=== PATIENT | female | born 1995 | race Caucasian/White ===

== ENCOUNTER 2017-04-05 03:40 | Emergency (ER) | payer SELFPAY ==
--- NOTE | 2017-04-05 04:04 | PDOC ---
History of Present Illness - General History Source: Patient <Kong Norman - Last Filed: 04/05/17 04:04> - General History Source: Patient Exam Limitations: No Limitations - History of Present Illness Initial Comments: 04/05/17 04:19 The patient is a 21 year old female with no significant past medical history who presents who the ED, via EMS, with complaints of abdominal pain since yesterday. The patient reports a gradual onset of intermittent diffuse abdominal pain yesterday morning. Patient states her pain is a 10/10 at worst but upon arrival to the ED notes her pain is a 0/10. She states her last real meal was on saturday and she feels like she has not digested her food throughout the week. Patient reports in the past she had an infection of the intestine. Patient notes her menstrual period started 2 days ago. Denies fever or chills. Denies nausea, vomiting, or diarrhea. Denies dysuria or change in urinary output. Denies any other symptoms. <Maribell Morton - Last Filed: 04/05/17 04:19> <Irma Mccall - Last Filed: 04/05/17 10:30> - General Stated Complaint: ABDOMINAL PAIN Time Seen by Provider: 04/05/17 03:59 Past History <Kong Norman - Last Filed: 04/05/17 04:04> <Maribell Morton - Last Filed: 04/05/17 04:19> <Irma Mccall - Last Filed: 04/05/17 10:30> - Past Medical History Allergies/Adverse Reactions: Allergies Allergy/AdvReac Type Severity Reaction Status Date / Time No Known Allergies Allergy Verified 04/05/17 04:08 Home Medications: Ambulatory Orders Acetaminophen [Tylenol] 650 mg PO Q4H PRN #100 tablet 04/05/17 Ciprofloxacin [Cipro -] 500 mg PO BID #14 tablet 04/05/17 Review of Systems - Review of Systems Able to Perform ROS?: Yes Comments:: 04/05/17 04:19 CONSTITUTIONAL: No reported: Fever, Chills, Diaphoresis, Generalized Weakness, Malaise, Loss of Appetite HEENT: No reported: Rhinorrhea, Nasal Congestion, Throat Pain, Throat Swelling, Difficulty Swallowing, Mouth Swelling, Ear Pain, Eye Pain, Visual Changes CARDIOVASCULAR: No reported: Chest Pain, Syncope, Palpitations, Irregular Heart Rate, Lightheadedness, Peripheral Edema RESPIRATORY: No reported: Cough, Shortness of Breath, SOB with Exertion, Orthopnea, Wheezing , Stridor, Hemoptysis GASTROINTESTINAL: + abdominal pain, decreased PO intake No reported: Abdominal Distension, Nausea, Vomiting, Diarrhea, Constipation, Melena, Hematochezia GENITOURINARY: No reported: Dysuria, Frequency, Urgency, Hesitancy, Flank Pain, Genital Pain MUSCULOSKELETAL: No reported: Myalgia, Arthralgia, Joint Swelling, Back pain, Neck Pain SKIN: No reported: Rash, Itching, Pallor HEMEATOLOGIC/IMMUNOLOGIC: No reported: Easy Bleeding, Easy Bruising, Lymphadenopathy, Frequent infections ENDOCRINE: No reported: Unexplained Weight Gain, Unexplained Weight Loss, Heat Intolerance , Cold Intolerance NEUROLOGIC: No reported: Headache, Focal Weakness, Paresthesias, Vertigo, Lightheadedness, Unsteady Gait, Seizure, Mental Status Changes, Incontinence PSYCHIATRIC: No reported: Anxiety, Depression All Other Systems: Reviewed and Negative <Maribell Morton - Last Filed: 04/05/17 04:19> *Physical Exam - Vital Signs Last Vital Signs Temp Pulse Resp BP Pulse Ox 98.4 F 84 18 98/76 99 04/05/17 04:01 04/05/17 04:01 04/05/17 04:01 04/05/17 04:01 04/05/17 04:01 - Physical Exam Comments: 04/05/17 04:19 GENERAL: The patient is awake, alert, and fully oriented, Nontoxic - in no acute distress. HEAD: Normocephalic, atraumatic. EYES: extraocular movements intact, sclera anicteric, conjunctiva clear. ENT: Normal voice, Moist mucous membranes. NECK: Normal range of motion, supple LUNGS: Breath sounds equal, clear to auscultation bilaterally. No wheezes, no rhonchi, no rales. HEART: Regular rate and rhythm, without murmur, rub or gallop. ABDOMEN: Soft, nontender, normoactive bowel sounds. No guarding, no rebound.No CVA tenderness EXTREMITIES: Normal range of motion, no edema. No clubbing or cyanosis. No cords, erythema, or tenderness. NEUROLOGICAL: No facial assymetry, Normal speech, PSYCH: Normal mood, normal affect. SKIN: Warm, Dry, normal turgor, <SeleneAnddonas - Last Filed: 04/05/17 04:19> - Vital Signs Last Vital Signs Temp Pulse Resp BP Pulse Ox 98.4 F 84 18 98/76 99 04/05/17 04:01 04/05/17 04:01 04/05/17 04:01 04/05/17 04:01 04/05/17 04:01 <Irma Mccall - Last Filed: 04/05/17 10:30> ED Treatment Course - LABORATORY CBC & Chemistry Diagram: 04/05/17 04:34 04/05/17 04:34 - ADDITIONAL ORDERS Additional order review: Laboratory Results 04/05/17 04/05/17 04/05/17 06:00 04:34 04:34 PT with INR INR Sodium 138 Potassium 3.7 Chloride 104 Carbon Dioxide 27 Anion Gap 7 L BUN 8 Creatinine 0.6 Creat Clearance w eGFR > 60 Random Glucose 107 H Calcium 8.7 Magnesium 1.9 Total Bilirubin 0.2 AST 13 L ALT 17 Alkaline Phosphatase 88 Total Protein 7.8 Albumin 4.1 Lipase 116 Serum , Qual Negative Urine Color Laurie Urine Appearance Slcloudy Urine pH 6.0 Ur Specific [place] 1.006 Urine Protein 1+ H Urine Glucose (UA) Negative Urine Ketones Negative Urine Blood 3+ H Urine Nitrite Negative Urine Bilirubin Negative Urine Urobilinogen Negative Ur Leukocyte Esterase Trace H Ur Epithelial Cells Few Urine Bacteria Rare Urine Mucus Rare 04/05/17 04:34 PT with INR 12.80 H INR 1.13 Sodium Potassium Chloride Carbon Dioxide Anion Gap BUN Creatinine Creat Clearance w eGFR Random Glucose Calcium Magnesium Total Bilirubin AST ALT Alkaline Phosphatase Total Protein Albumin Lipase Serum , Qual Urine Color Urine Appearance Urine pH Ur Specific [place] Urine Protein Urine Glucose (UA) Urine Ketones Urine Blood Urine Nitrite Urine Bilirubin Urine Urobilinogen Ur Leukocyte Esterase Ur Epithelial Cells Urine Bacteria Urine Mucus 04/05/17 04:34 RBC 4.76 MCV 87.6 MCHC 33.1 RDW 12.9 MPV 8.4 Neutrophils % 80.1 Lymphocytes % 9.4 Monocytes % 9.4 Eosinophils % 0.7 Basophils % 0.4 - Medications Given in the ED: ED Medications Discontinued Medications Generic Name Dose Route Start Last Admin Trade Name Freq PRN Reason Stop Dose Admin Sodium Chloride 1,000 mls @ 1,000 mls/hr 04/05/17 04:05 04/05/17 04:36 Normal Saline - IV 04/05/17 05:04 1,000 mls/hr ASDIR STA Administration Ketorolac Tromethamine 30 mg 04/05/17 06:01 04/05/17 06:23 Toradol Injection - IVPUSH 04/05/17 06:02 30 mg ONCE ONE Administration <Irma Mccall - Last Filed: 04/05/17 10:30> *DC/Admit/Observation/Transfer <Kong Norman - Last Filed: 04/05/17 04:04> - Attestations Scribe Attestion: 04/05/17 04:20 Documentation prepared by Maribell Morton, acting as medical records manager for Kong Norman MD <Maribell Morton - Last Filed: 04/05/17 04:19> <Irma Mccall - Last Filed: 04/05/17 10:30> Diagnosis at time of Disposition: Colitis - Discharge Dispostion Disposition: HOME - Prescriptions Prescriptions: Acetaminophen [Tylenol] 650 mg PO Q4H PRN #100 tablet PRN Reason: Pain Ciprofloxacin [Cipro -] 500 mg PO BID #14 tablet - Referrals Referrals: Dami Das MD [Staff Physician] - 3 days - Post Discharge Activity Forms/Work/School Notes: Back to Work
[2017-04-05] MEDS ORDERED: SODIUM CHLORIDE 1,000 ML IV STA (04:05)
[2017-04-05 04:18] VITALS: TEMP 98.4; BMI 24.5
[2017-04-05 04:50] LABS: BASOPHIL 0.4 % (0-2.0); EOSINOPHIL 0.7 % (0-4.5); MCHC 33.1 g/dl (32.0-36.0); MEAN CELL VOLUME 87.6 fl (80-96); MEAN PLT VOLUME 8.4 fl (7.5-11.1); NEUTROPHILS 80.1 % (42.8-82.8); PLATELET COUNT 262 K/MM3 (134-434); RDW 12.9 % (11.6-15.6); WHITE BLOOD COUNT 9.3 K/mm3 (4.0-10.0)
[2017-04-05 05:03] LABS: INR 1.13 (0.82-1.09); PROTHROMBIN TIME (PATIENT) 12.8 SEC (9.98-11.88)
[2017-04-05 05:14] LABS: ALBUMIN 4.1 g/dl (3.4-5.0); ANION GAP 7 (8-16); BILIRUBIN,TOTAL 0.2 mg/dL (0.2-1.0); CALCIUM 8.7 mg/dL (8.5-10.1); CO2 27 mmol/L (21-32); CREATININE 0.6 mg/dL (0.55-1.02); GLUCOSE,RANDOM 107 mg/dL (74-106); MAGNESIUM 1.9 mg/dL (1.8-2.4); SGOT/AST 13 U/L (15-37); SGPT/ALT 17 U/L (12-78); TOT PROT 7.8 g/dl (6.4-8.2)
[2017-04-05 05:15] LABS: ALK PHOS 88 U/L (45-117)
[2017-04-05] MEDS ORDERED: KETOROLAC TROMETHAMINE 30 MG/1 ML VIAL IVPUSH ONE (06:01)
[2017-04-05 06:12] LABS: URINE APPEARANCE SLCLOUDY; URINE BILIRUBIN NEGATIVE (NEGATIVE); URINE BLOOD 3+ (NEGATIVE); URINE COLOR AMBER; URINE GLUCOSE (UA) NEGATIVE (NEGATIVE); URINE KETONE NEGATIVE (NEGATIVE); URINE NITRITE NEGATIVE (NEGATIVE); URINE UROBILINOGEN NEGATIVE mg/dL (0.2-1.0)
[2017-04-05 06:15] LABS: URINE PROTEIN 1+ (NEGATIVE)
[2017-04-05] MEDS ORDERED: KETOROLAC TROMETHAMINE 30 MG/1 ML VIAL ONE (06:19)
[2017-04-05 06:22] LABS: URINE BACTERIA RARE /hpf (NONE SEEN); URINE MUCUS RARE; URINE RBC 96 /hpf (0-3); URINE WBC 99 /hpf (3-5)
[2017-04-05 09:48] LABS: URINE LEUK ESTERASE TRACE (NEGATIVE)
--- NOTE | 2017-04-05 10:12 | PDOC ---
*Physical Exam - Vital Signs Last Vital Signs Temp Pulse Resp BP Pulse Ox 98.4 F 84 18 98/76 99 04/05/17 04:01 04/05/17 04:01 04/05/17 04:01 04/05/17 04:01 04/05/17 04:01 ED Treatment Course - LABORATORY CBC & Chemistry Diagram: 04/05/17 04:34 04/05/17 04:34 - ADDITIONAL ORDERS Additional order review: Laboratory Results 04/05/17 04/05/17 04/05/17 06:00 04:34 04:34 PT with INR INR Sodium 138 Potassium 3.7 Chloride 104 Carbon Dioxide 27 Anion Gap 7 L BUN 8 Creatinine 0.6 Creat Clearance w eGFR > 60 Random Glucose 107 H Calcium 8.7 Magnesium 1.9 Total Bilirubin 0.2 AST 13 L ALT 17 Alkaline Phosphatase 88 Total Protein 7.8 Albumin 4.1 Lipase 116 Serum , Qual Negative Urine Color Laurie Urine Appearance Slcloudy Urine pH 6.0 Ur Specific [place] 1.006 Urine Protein 1+ H Urine Glucose (UA) Negative Urine Ketones Negative Urine Blood 3+ H Urine Nitrite Negative Urine Bilirubin Negative Urine Urobilinogen Negative Ur Leukocyte Esterase Trace H Ur Epithelial Cells Few Urine Bacteria Rare Urine Mucus Rare 04/05/17 04:34 PT with INR 12.80 H INR 1.13 Sodium Potassium Chloride Carbon Dioxide Anion Gap BUN Creatinine Creat Clearance w eGFR Random Glucose Calcium Magnesium Total Bilirubin AST ALT Alkaline Phosphatase Total Protein Albumin Lipase Serum , Qual Urine Color Urine Appearance Urine pH Ur Specific [place] Urine Protein Urine Glucose (UA) Urine Ketones Urine Blood Urine Nitrite Urine Bilirubin Urine Urobilinogen Ur Leukocyte Esterase Ur Epithelial Cells Urine Bacteria Urine Mucus 04/05/17 04:34 RBC 4.76 MCV 87.6 MCHC 33.1 RDW 12.9 MPV 8.4 Neutrophils % 80.1 Lymphocytes % 9.4 Monocytes % 9.4 Eosinophils % 0.7 Basophils % 0.4 - Medications Given in the ED: ED Medications Discontinued Medications Generic Name Dose Route Start Last Admin Trade Name Freq PRN Reason Stop Dose Admin Sodium Chloride 1,000 mls @ 1,000 mls/hr 04/05/17 04:05 04/05/17 04:36 Normal Saline - IV 04/05/17 05:04 1,000 mls/hr ASDIR STA Administration Ketorolac Tromethamine 30 mg 04/05/17 06:01 04/05/17 06:23 Toradol Injection - IVPUSH 04/05/17 06:02 30 mg ONCE ONE Administration Medical Decision Making - Medical Decision Making 04/05/17 10:07 21-year-old female is here for evaluation of abdominal pain with poor appetite and intermittent cramps. She has a history of intermittent abdominal pains in the past. She also has a past history of blood in the stool. She has never been worked up for these findings previously. She now presents with intermittent crampy abdominal pain. On examination she has some right lower quadrant and suprapubic tenderness on deep palpation. There is no guarding and no rebound tenderness. Laboratory studies reviewed: Laboratory Results - last 24 hr 04/05/17 04/05/17 04/05/17 04:34 04:34 04:34 WBC 9.3 RBC 4.76 Hgb 13.8 Hct 41.6 MCV 87.6 MCH 29.0 MCHC 33.1 RDW 12.9 Plt Count 262 MPV 8.4 Neutrophils % 80.1 Lymphocytes % 9.4 Monocytes % 9.4 Eosinophils % 0.7 Basophils % 0.4 PT with INR 12.80 H INR 1.13 Sodium Potassium Chloride Carbon Dioxide Anion Gap BUN Creatinine Creat Clearance w eGFR Random Glucose Calcium Magnesium Total Bilirubin AST ALT Alkaline Phosphatase Total Protein Albumin Lipase Serum , Qual Negative Urine Color Urine Appearance Urine pH Ur Specific [place] Urine Protein Urine Glucose (UA) Urine Ketones Urine Blood Urine Nitrite Urine Bilirubin Urine Urobilinogen Ur Leukocyte Esterase Ur Epithelial Cells Urine Bacteria Urine Mucus 04/05/17 04/05/17 04:34 06:00 WBC RBC Hgb Hct MCV MCH MCHC RDW Plt Count MPV Neutrophils % Lymphocytes % Monocytes % Eosinophils % Basophils % PT with INR INR Sodium 138 Potassium 3.7 Chloride 104 Carbon Dioxide 27 Anion Gap 7 L BUN 8 Creatinine 0.6 Creat Clearance w eGFR > 60 Random Glucose 107 H Calcium 8.7 Magnesium 1.9 Total Bilirubin 0.2 AST 13 L ALT 17 Alkaline Phosphatase 88 Total Protein 7.8 Albumin 4.1 Lipase 116 Serum , Qual Urine Color Laurie Urine Appearance Slcloudy Urine pH 6.0 Ur Specific [place] 1.006 Urine Protein 1+ H Urine Glucose (UA) Negative Urine Ketones Negative Urine Blood 3+ H Urine Nitrite Negative Urine Bilirubin Negative Urine Urobilinogen Negative Ur Leukocyte Esterase Trace H Ur Epithelial Cells Few Urine Bacteria Rare Urine Mucus Rare White blood cell count is normal. Electrolytes and liver function tests are unremarkable. Urinalysis has blood, but the patient is currently menstruating. CT scan of the abdomen and pelvis was performed with findings of thickening in areas of the colon. Patient symptoms and CT findings are suggestive of colitis, possibly ulcerative colitis. She will be treated with Cipro for the possibility of infectious cause. She will be given Tylenol for pain. She will be referred to Dr. Mick Das for GI follow-up and colonoscopy. *DC/Admit/Observation/Transfer Diagnosis at time of Disposition: Colitis - Discharge Dispostion Disposition: HOME Condition at time of disposition: Improved Admit: No - Prescriptions Prescriptions: Acetaminophen [Tylenol] 650 mg PO Q4H PRN #100 tablet PRN Reason: Pain Ciprofloxacin [Cipro -] 500 mg PO BID #14 tablet - Referrals Referrals: Dami Das MD [Staff Physician] - 3 days - Patient Instructions - Post Discharge Activity Forms/Work/School Notes: Back to Work
[2017-04-05] MEDS ORDERED: ACETAMINOPHEN 325 MG TABLET (FP) PO ONE (10:26)
[2017-04-05] MEDS ORDERED: CIPROFLOXACIN 500 MG TABLET (RESTRICTED TO ID) PO ONE (10:26)
[2017-04-05] MEDS ORDERED: ACETAMINOPHEN 325 MG TABLET (FP) ONE (10:32)
[2017-04-05 11:23] VITALS: BP 112/89; PULSE 78
== END 2017-04-05 11:23 | disposition home or self-care (01) ==
LOC: JER 03:40
PROC: 3E0333Z Introduction of Anti-inflammatory into Peripheral Vein, Percutaneous Approach (ICD-10-PCS; principal; 2017-04-05)
PROC: 3E0337Z Introduction of Electrolytic and Water Balance Substance into Peripheral Vein, Percutaneous Approach (ICD-10-PCS; 2017-04-05)
DX: K52.9 Noninfective gastroenteritis and colitis, unspecified (principal)
CPT/HCPCS: 36415; 74177-TC; 80053; 81003; 81015; 83690; 83735; 84703; 85025; 85610; 99284-25; Q9967

== ENCOUNTER 2017-04-18 09:28 | Day surgery (SDC) | payer OTHER ==
[2017-04-18 10:25] VITALS: BMI 23.6
--- NOTE | 2017-04-18 11:28 | PROC ---
Endoscopy Procedure Endoscopy procedure completed. Please see scanned procedure report. Normal colonoscopy to the TI. random biopsies taken
[2017-04-18 11:46] VITALS: TEMP 97.5
[2017-04-18 12:55] VITALS: BP 86/31; PULSE 54
--- NOTE | 2017-04-19 12:02 | PATH ---
Surgical Pathology Report Patient Name: MAYRA KURTZ [facility]. Rec. #: [id number] /Age/Gender: 1995 (Age: 21) / F Account: [id number] Location: [facility]-ENDOSCOPY Taken: 04/18/2017 Received: 04/18/2017 Reported: 04/19/2017 Physicians: Dami Das M.D. Specimen(s) Received A: BX TERMINAL ILEUM B: BX ASCENDING COLON C: BX TRANSVERSE COLON D: BX DESCENDING COLON E: BX SIGMOID F: BX RECTUM Clinical History Preoperative diagnosis: Blood in the stool Postoperative diagnosis: Hematochezia Final Diagnosis A. TERMINAL ILEUM, BIOPSY: SMALL BOWEL/ILEAL MUCOSA WITHOUT SIGNIFICANT PATHOLOGIC FINDINGS. B. ASCENDING COLON, BIOPSY: COLONIC MUCOSA WITHOUT SIGNIFICANT PATHOLOGIC FINDINGS. C. TRANSVERSE COLON, BIOPSY: COLONIC MUCOSA WITHOUT SIGNIFICANT PATHOLOGIC FINDINGS. D. DESCENDING COLON, BIOPSY: COLONIC MUCOSA WITH SMALL LYMPHOID AGGREGATE. E. SIGMOID COLON, BIOPSY: COLONIC MUCOSA WITH SMALL LYMPHOID AGGREGATE. F. RECTUM, BIOPSY: COLONIC MUCOSA WITH PROMINENT LYMPHOID AGGREGATES. Electronically Signed Ivet Manning M.D. Gross Description A. Received in formalin, labeled "biopsy terminal ileum" are 2 galvan, irregular portions of soft tissue averaging 0.3 cm. in greatest dimension. The specimens are submitted in toto in one cassette. B. Received in formalin, labeled "biopsy ascending colon" are 2 galvan, irregular portions of soft tissue averaging 0.3 cm. in greatest dimension. The specimens are submitted in toto in one cassette. C. Received in formalin, labeled "biopsy transverse colon" are 2 galvan, irregular portions of soft tissue measuring 0.2 and 0.3 cm. in greatest dimension. The specimens are submitted in toto in one cassette. D. Received in formalin, labeled "biopsy descending colon" are 2 galvan, irregular portions of soft tissue measuring 0.2 and 1.4 cm. in greatest dimension. The specimens are submitted in toto in one cassette. E. Received in formalin, labeled "biopsy sigmoid" are 2 galvan, irregular portions of soft tissue averaging 0.2 cm. in greatest dimension. The specimens are submitted in toto in one cassette. F. Received in formalin, labeled "biopsy rectum" are 2 galvan, irregular portions of soft tissue measuring 0.2 and 0.3 cm. in greatest dimension. The specimens are submitted in toto in one cassette. 04/18/201704/18/2017
== END 2017-04-18 13:02 | disposition home or self-care (01) ==
LOC: JASU-ENDO 09:28
PROVIDERS: ATTEND Internal Medicine Gastroenterology
PROC: 0DBE8ZX Excision of Large Intestine, Via Natural or Artificial Opening Endoscopic, Diagnostic (ICD-10-PCS; 2017-04-18)
PROC: 0DBB8ZX Excision of Ileum, Via Natural or Artificial Opening Endoscopic, Diagnostic (ICD-10-PCS; principal; 2017-04-18 10:00)
DX: K92.1 Melena (principal); R10.30 Lower abdominal pain, unspecified
CPT/HCPCS: 84703; 88305-TC

== ENCOUNTER 2017-06-11 15:59 | Emergency (ER) | payer OTHER ==
--- NOTE | 2017-06-11 16:11 | PDOC ---
Rapid Medical Evaluation Time Seen by Provider: 06/11/17 16:06 Medical Evaluation: Allergies Allergy/AdvReac Type Severity Reaction Status Date / Time No Known Allergies Allergy Verified 04/05/17 04:08 06/11/17 16:07 Pt with c/o: fever, right abd pain, sore throat, urinary freq, bladder pressure pt on brief exam: vss, ruq tenderness, mild cvs tenderness Pt ordered for: rapid strep, ua ucx, upreg, cbc, comp, lipase Pt to proceed to the ED: Discharge Disposition - Diagnosis Abdominal pain - Referrals - Patient Instructions - Post Discharge Activity
[2017-06-11 16:13] VITALS: BP 101/64; PULSE 78; TEMP 97.6; BMI 24.5
[2017-06-11 16:50] LABS: BASO % 0.9 % (0-2.0); EOS % 2.7 % (0-4.5); HEMOGLOBIN 13.2 GM/dL (10.7-15.3); LYMPH % 44.9 % (8-40); MCH 29.1 pg (25.7-33.7); MEAN CELL VOLUME 88.1 fl (80-96); MEAN PLT VOLUME 8.5 fl (7.5-11.1); MONO % 11.8 % (3.8-10.2); NEUT % 39.7 % (42.8-82.8); PLATELET COUNT 259 K/MM3 (134-434); RBC 4.54 M/mm3 (3.60-5.2); RDW 13.4 % (11.6-15.6); WHITE BLOOD COUNT 5.1 K/mm3 (4.0-10.0)
[2017-06-11 16:54] LABS: HCG,QUALITATIVE URINE NEGATIVE
[2017-06-11 16:55] LABS: URINE APPEARANCE CLEAR; URINE BILIRUBIN NEGATIVE (NEGATIVE); URINE BLOOD NEGATIVE (NEGATIVE); URINE COLOR COLORLESS; URINE GLUCOSE (UA) NEGATIVE (NEGATIVE); URINE KETONE NEGATIVE (NEGATIVE); URINE LEUK ESTERASE NEGATIVE (NEGATIVE); URINE NITRITE NEGATIVE (NEGATIVE); URINE PROTEIN NEGATIVE (NEGATIVE); URINE UROBILINOGEN NEGATIVE mg/dL (0.2-1.0)
[2017-06-11 17:45] LABS: ALBUMIN 4.2 g/dl (3.4-5.0); ANION GAP 7 (8-16); BILIRUBIN,TOTAL 0.4 mg/dL (0.2-1.0); BLOOD UREA NITROGEN 9 mg/dL (7-18); CALCIUM 9.2 mg/dL (8.5-10.1); CHLORIDE 103 mmol/L (98-107); CO2 28 mmol/L (21-32); CREATININE 0.6 mg/dL (0.55-1.02); GLUCOSE,RANDOM 75 mg/dL (74-106); LIPASE 138 U/L (73-393); POTASSIUM 3.8 mmol/L (3.5-5.1); SGOT/AST 17 U/L (15-37); SGPT/ALT 18 U/L (12-78); SODIUM 138 mmol/L (136-145)
[2017-06-11 17:47] LABS: ALK PHOS 89 U/L (45-117)
--- NOTE | 2017-06-11 19:37 | PDOC ---
History of Present Illness <Lisa Ma - Last Filed: 06/11/17 19:49> - General History Source: Patient, Old Records Exam Limitations: No Limitations - History of Present Illness Initial Comments: 06/11/17 19:57 The patient is a 21 year old female, with no significant past medical history, who presents to the emergency department with abdominal pain, nausea, sore throat and a low grade fever. She describes her abdominal pain as intermittent for the last month, ranging from mild to moderate, without radiation or modifying factors. She was in the ED 03/2017 for abdominal pain, had a CT scan abdomen / pelvis which showed an inflammed transverse colon. She was referred to Dr. Das (GI), who performed a colonoscopy but the patient never followed UP. She notes that her sore throat ranges from mild to moderate. She states that she is able to swallow with minimal difficulty. The patient denies chest pain, shortness of breath, headache and dizziness. Denies chills, vomit, diarrhea and constipation. Allergies: None Past surgical history: None reported Social history: No alcohol, tobacco or drug use reported <Kong Taveras - Last Filed: 06/11/17 19:58> - General Chief Complaint: Sore Throat Stated Complaint: SORE THROAT Time Seen by Provider: 06/11/17 16:06 Past History - Past Medical History Anemia: No Asthma: No Cancer: No Cardiac Disorders: No CVA: No COPD: No CHF: No DVT: No Dementia: No Diabetes: No Dialysis: No GI Disorders: Yes ("Intestine Infection") Disorders: No (OVARIAN CYSTS) HTN: No Hypercholesterolemia: No Kidney Stones: No Liver Disease: No Psychiatric Problems: No Seizures: No Thyroid Disease: No Lung CA: No - Surgical History Abdominal Surgery: No Appendectomy: No Cardiac Surgery: No Cholecystectomy: No Gastric Stapling: No GI Surgery: No Lung Surgery: No Neurologic Surgery: No - Immunization History Immunization Up to Date: Yes - Suicide/Smoking/Psychosocial Hx Smoking History: Never smoked Have you smoked in the past 12 months: No If you are a former smoker, when did you quit?: 2014 Information on smoking cessation initiated: No Hx Alcohol Use: No Drug/Substance Use Hx: No Substance Use Type: None <Lisa Ma Estelle - Last Filed: 06/11/17 19:49> <Kong Taveras - Last Filed: 06/11/17 19:58> - Past Medical History Allergies/Adverse Reactions: Allergies Allergy/AdvReac Type Severity Reaction Status Date / Time No Known Allergies Allergy Verified 04/05/17 04:08 Home Medications: Ambulatory Orders NK [No Known Home Medication] 04/18/17 Review of Systems - Review of Systems Able to Perform ROS?: Yes Comments:: 06/11/17 19:57 GENERAL/CONSTITUTIONAL: (+) Fever. No chills. No weakness. HEAD, EYES, EARS, NOSE AND THROAT: (+) Sore throat. No change in vision. No ear pain or discharge. CARDIOVASCULAR: No chest pain or shortness of breath RESPIRATORY: No cough, wheezing, or hemoptysis. GASTROINTESTINAL: (+) Nausea, abdominal pain. No vomiting, diarrhea or constipation. GENITOURINARY: No dysuria, frequency, or change in urination. MUSCULOSKELETAL: No joint or muscle swelling or pain. No neck or back pain. SKIN: No rash NEUROLOGIC: No headache, vertigo, loss of consciousness, or change in strength/ sensation. ENDOCRINE: No increased thirst. No abnormal weight change HEMATOLOGIC/LYMPHATIC: No anemia, easy bleeding, or history of blood clots. ALLERGIC/IMMUNOLOGIC: No hives or skin allergy. <Kong Taveras - Last Filed: 06/11/17 19:58> *Physical Exam - Vital Signs Last Vital Signs Temp Pulse Resp BP Pulse Ox 97.6 F 78 16 101/64 100 06/11/17 16:08 06/11/17 16:08 06/11/17 16:08 06/11/17 16:08 06/11/17 16:08 <Lisa Ma - Last Filed: 06/11/17 19:49> - Vital Signs Last Vital Signs Temp Pulse Resp BP Pulse Ox 97.6 F 78 16 101/64 100 06/11/17 16:08 06/11/17 16:08 06/11/17 16:08 06/11/17 16:08 06/11/17 16:08 - Physical Exam Comments: 06/11/17 19:58 GENERAL: Awake, alert, and fully oriented, in no acute distress HEAD: No signs of trauma, normocephalic, atraumatic EYES: PERRLA, EOMI, sclera anicteric, conjunctiva clear ENT: (+) Erythematous oropharynx. Auricles normal inspection, hearing grossly normal, nares patent. Moist mucosa NECK: Normal ROM, supple, no lymphadenopathy, JVD, or masses LUNGS: No distress, speaks full sentences, clear to auscultation bilaterally HEART: Regular rate and rhythm, normal S1 and S2, no murmurs, rubs or gallops, peripheral pulses normal and equal bilaterally. ABDOMEN: Soft, nontender, normoactive bowel sounds. No guarding, no rebound. No masses EXTREMITIES : Normal inspection, Normal range of motion, no edema. No clubbing or cyanosis. NEUROLOGICAL: Cranial nerves II through XII grossly intact. Normal speech, normal gait, no focal sensorimotor deficits SKIN: Warm, Dry, normal turgor, no rashes or lesions noted. <Kong Taveras - Last Filed: 06/11/17 19:58> ED Treatment Course - LABORATORY CBC & Chemistry Diagram: 06/11/17 16:22 06/11/17 16:22 - ADDITIONAL ORDERS Additional order review: Laboratory Results 06/11/17 06/11/17 16:22 16:15 Sodium 138 Potassium 3.8 Chloride 103 Carbon Dioxide 28 Anion Gap 7 L BUN 9 Creatinine 0.6 Creat Clearance w eGFR > 60 Random Glucose 75 Calcium 9.2 Total Bilirubin 0.4 D AST 17 ALT 18 Alkaline Phosphatase 89 Total Protein 8.0 Albumin 4.2 Lipase 138 Urine Color Colorless Urine Appearance Clear Urine pH 7.0 Ur Specific [place] 1.004 Urine Protein Negative Urine Glucose (UA) Negative Urine Ketones Negative Urine Blood Negative Urine Nitrite Negative Urine Bilirubin Negative Urine Urobilinogen Negative Ur Leukocyte Esterase Negative Urine HCG, Qual Negative 06/11/17 16:15 Group A Strep Rapid Antigen - Final Throat 06/11/17 16:22 RBC 4.54 MCV 88.1 MCHC 33.0 RDW 13.4 MPV 8.5 Neutrophils % 39.7 L D Lymphocytes % 44.9 H D Monocytes % 11.8 H Eosinophils % 2.7 D Basophils % 0.9 - RADIOLOGY Radiology Studies Ordered: Category Date Time Status PELVIC / BLADDER US [US] Stat Ultrasound 06/11/17 18:07 Completed <Lisa Ma - Last Filed: 06/11/17 19:49> - LABORATORY CBC & Chemistry Diagram: 06/11/17 16:22 06/11/17 16:22 - ADDITIONAL ORDERS Additional order review: Laboratory Results 06/11/17 06/11/17 16:22 16:15 Sodium 138 Potassium 3.8 Chloride 103 Carbon Dioxide 28 Anion Gap 7 L BUN 9 Creatinine 0.6 Creat Clearance w eGFR > 60 Random Glucose 75 Calcium 9.2 Total Bilirubin 0.4 D AST 17 ALT 18 Alkaline Phosphatase 89 Total Protein 8.0 Albumin 4.2 Lipase 138 Urine Color Colorless Urine Appearance Clear Urine pH 7.0 Ur Specific [place] 1.004 Urine Protein Negative Urine Glucose (UA) Negative Urine Ketones Negative Urine Blood Negative Urine Nitrite Negative Urine Bilirubin Negative Urine Urobilinogen Negative Ur Leukocyte Esterase Negative Urine HCG, Qual Negative 06/11/17 16:15 Group A Strep Rapid Antigen - Final Throat 06/11/17 16:22 RBC 4.54 MCV 88.1 MCHC 33.0 RDW 13.4 MPV 8.5 Neutrophils % 39.7 L D Lymphocytes % 44.9 H D Monocytes % 11.8 H Eosinophils % 2.7 D Basophils % 0.9 <Kong Taveras - Last Filed: 06/11/17 19:58> *DC/Admit/Observation/Transfer <Lisa Ma - Last Filed: 06/11/17 19:49> - Attestations Scribe Attestion: 06/11/17 19:58 Documentation prepared by Kong Taveras, acting as bio medical technician for Lisa Ma MD <Kong Taveras - Last Filed: 06/11/17 19:58> Diagnosis at time of Disposition: Sore throat Abdominal pain Qualifiers: Abdominal location: right lower quadrant Qualified Code(s): R10.31 - Right lower quadrant pain - Discharge Dispostion Disposition: HOME Condition at time of disposition: Stable - Patient Instructions Printed Discharge Instructions: DI for Ovarian Cyst Additional Instructions: please return if you have worsening abdominal pain or vomiting - Post Discharge Activity Forms/Work/School Notes: Back to Work
[2017-06-11] MEDS ORDERED: IBUPROFEN 600 MG TABLET (FP) PO ONE ×2 (19:54→19:58)
== END 2017-06-11 20:00 | disposition home or self-care (01) ==
LOC: JER 15:59 → JERFT 15:59 → JER 20:00
DX: J02.9 Acute pharyngitis, unspecified (principal); R10.31 Right lower quadrant pain
CPT/HCPCS: 36415; 76856-TC; 80053; 81003; 83690; 84703; 85025; 87070; 87086; 87430; 99282-25

== ENCOUNTER 2017-06-12 16:31 | Emergency (ER) | payer OTHER ==
--- NOTE | 2017-06-12 16:42 | PDOC ---
Rapid Medical Evaluation Chief Complaint: Back Pain Time Seen by Provider: 06/12/17 16:39 Medical Evaluation: Allergies Allergy/AdvReac Type Severity Reaction Status Date / Time No Known Allergies Allergy Verified 06/12/17 16:38 06/12/17 16:41 I have performed a brief in-person evaluation of this patient. The patient presents with a chief complaint of: Fever and ? dysuria. Seen in ED yesterday for viral syndrome including abd pain. Labs including ua and strep neg. Ucx pending. Pelvic US w/ simple R cyst, no torsion Pertinent physical exam findings: Mildly tachy w/ unremarkable exam otherwise I have ordered the following:nothing The patient will proceed to the ED for further evaluation.
[2017-06-12 16:47] VITALS: BP 109/80; PULSE 108; TEMP 99.1; BMI 22.6
[2017-06-12] MEDS ORDERED: IBUPROFEN 400 MG TABLET (FP) PO ONE (16:48)
--- NOTE | 2017-06-12 18:35 | PDOC ---
History of Present Illness - General Chief Complaint: Back Pain Stated Complaint: PAIN Time Seen by Provider: 06/12/17 16:39 History Source: Patient, Old Records Exam Limitations: Language Barrier (Markafoni #[id number]) - History of Present Illness Initial Comments: 06/12/17 18:33 This a 21-year-old woman with past medical history of ovarian cysts who returns to the emergency Department after evaluation yesterday with complaints of fever , headaches, sore throat, left-sided abdominal pain, nasal congestion, nausea for 2 days. Patient states she felt better after receiving "an antibiotic" in the emergency department but was unsure why a prescription had not been sent to her pharmacy. Patient was told she received ibuprofen in the emergency department and asked for a prescription for ibuprofen. It was explained to the patient that ibuprofen is an nsrz-web-urukiey medication and a prescription is not needed. She states the symptoms returned after approximately 10 hours from receiving the ibuprofen. Past History - Past Medical History Allergies/Adverse Reactions: Allergies Allergy/AdvReac Type Severity Reaction Status Date / Time No Known Allergies Allergy Verified 06/12/17 16:38 Home Medications: Ambulatory Orders NK [No Known Home Medication] 04/18/17 Anemia: No Asthma: No Cancer: No Cardiac Disorders: No CVA: No COPD: No CHF: No DVT: No Dementia: No Diabetes: No Dialysis: No GI Disorders: Yes ("Intestine Infection") Disorders: No (OVARIAN CYSTS) HTN: No Hypercholesterolemia: No Kidney Stones: No Liver Disease: No Psychiatric Problems: No Seizures: No Thyroid Disease: No Lung CA: No - Surgical History Abdominal Surgery: No Appendectomy: No Cardiac Surgery: No Cholecystectomy: No Gastric Stapling: No GI Surgery: No Lung Surgery: No Neurologic Surgery: No - Immunization History Immunization Up to Date: Yes - Suicide/Smoking/Psychosocial Hx Smoking History: Never smoked Have you smoked in the past 12 months: No If you are a former smoker, when did you quit?: 2014 Information on smoking cessation initiated: No Hx Alcohol Use: No Drug/Substance Use Hx: No Substance Use Type: None Review of Systems - Review of Systems Able to Perform ROS?: Yes Is the patient limited Yi proficient: Yes Constitutional: Yes: See HPI HEENTM: Yes: See HPI Respiratory: No: Symptoms reported Cardiac (ROS): No: Symptoms Reported ABD/GI: Yes: See HPI : No: Symptoms Reported Musculoskeletal: No: Symptoms Reported Integumentary: No: Symptoms Reported Neurological: No: Symptoms reported Endocrine: No: Symptoms Reported Hematologic/Lymphatic: No: Symptoms Reported *Physical Exam - Vital Signs Last Vital Signs Temp Pulse Resp BP Pulse Ox 99.1 F 108 H 16 109/80 100 06/12/17 16:38 06/12/17 16:38 06/12/17 16:38 06/12/17 16:38 06/12/17 16:38 - Physical Exam General Appearance: Yes: Appropriately Dressed. No: Apparent Distress HEENT: positive: Pharyngeal Erythema, Nasal Congestion. negative: Tonsillar Exudate, Tonsillar Erythema, Rhinorrhea, Sinus Tenderness Neck: positive: Trachea midline, Supple Respiratory/Chest: positive: Lungs Clear, Normal Breath Sounds. negative: Respiratory Distress, Accessory Muscle Use Cardiovascular: positive: Regular Rhythm, Regular Rate, S1, S2. negative: Edema , Murmur Gastrointestinal/Abdominal: positive: Normal Bowel Sounds, Soft. negative: Tender Musculoskeletal: positive: Normal Inspection. negative: CVA Tenderness Extremity: positive: Normal Inspection Integumentary: positive: Normal Color, Dry, Warm Neurologic: positive: chef kitchen manager II-XII NML intact, Fully Oriented, Alert, Normal Mood/ Affect, Normal Response, Motor Strength /5 ED Treatment Course - Medications Given in the ED: ED Medications Discontinued Medications Generic Name Dose Route Start Last Admin Trade Name Freq PRN Reason Stop Dose Admin Ibuprofen 800 mg 06/12/17 16:48 06/12/17 16:49 Motrin - PO 06/12/17 16:49 800 mg ONCE ONE Administration Medical Decision Making - Medical Decision Making 06/12/17 18:39 A/P: 21-year-old woman with return visit for fever, headaches, sore throat lower abdominal pain, nasal congestion and nausea. Patient exam is unchanged since yesterday. Patient was expecting a prescription of Motrin sent to pharmacy yesterday and was not. I will discharge the patient with understanding that she needs to purchase Motrin and taken to help relieve the pain. *DC/Admit/Observation/Transfer Diagnosis at time of Disposition: Sore throat - Discharge Dispostion Disposition: HOME Condition at time of disposition: Stable Admit: No - Referrals - Patient Instructions Printed Discharge Instructions: DI for Viral Upper Respiratory Infection -- Adult Additional Instructions: Rest, drink lots of fluids: Teas, water, soups, Pedialyte Saltwater gargles Steamy showers/seem to face break up mucus Avoid contact with others until fevers and cough resolved Lots of handwashing and good hygiene Continue [id number] medications for symptomatic relief Tylenol or Motrin for fever and pain Tylenol and Motrin are joxp-vyo-dwcaccy medications which require you to purchase them Followup with private physician in one to 2 days as needed Return to emergency department for worsened symptoms, fevers, dehydration Descjessica santiago muchos lquidos: ts, agua, sopas, Pedialyte Grgaras de agua salada Las duchas con agua parecen romper la mucosidad Evite el contacto con otras personas hasta que se resuelvan las fiebres y la tos Mucho lavado de judy y buena higiene Continuar tomando medicamentos sin receta para aliviar los sntomas Tylenol o Motrin para la fiebre y el dolor Tylenol y Motrin son medicamentos de venta markel que requieren que usted los compre Seguimiento con un mdico privado en kurt o dos rollins segn sea necesario Regrese al departamento de emergencias por sntomas empeorados, fiebre, deshidratacin Print Language: [place] - Post Discharge Activity
== END 2017-06-12 18:45 | disposition home or self-care (01) ==
LOC: JERFT 16:31
DX: J02.9 Acute pharyngitis, unspecified (principal); Z87.891 Personal history of nicotine dependence
CPT/HCPCS: 99281-25

== ENCOUNTER 2017-09-27 13:54 | Emergency (ER) | payer OTHER ==
[2017-09-27 14:24] VITALS: BMI 25.4
[2017-09-27 15:18] LABS: HCG,QUALITATIVE URINE NEGATIVE
[2017-09-27 15:29] LABS: URINE APPEARANCE TURBID; URINE BILIRUBIN NEGATIVE (<2.0 mg/dL); URINE COLOR YELLOW; URINE GLUCOSE (UA) NEGATIVE (NEGATIVE); URINE KETONE NEGATIVE (NEGATIVE); URINE LEUK ESTERASE NEGATIVE (NEGATIVE); URINE NITRITE NEGATIVE (NEGATIVE); URINE PROTEIN NEGATIVE (NEGATIVE); URINE UROBILINOGEN NEGATIVE mg/dL (0.2-1.0)
--- NOTE | 2017-09-27 16:54 | PDOC ---
History of Present Illness - General History Source: Patient Exam Limitations: No Limitations - History of Present Illness Initial Comments: 09/27/17 19:51 The patient is a 22 year old female with a significant past medical history of polycystic ovarian syndrome and intestine infection who presents to the emergency department for bilateral lower abdominal pain. The patient reports a 2 day history of moderate bilateral lower abdominal pain. She describes the pain as constant, pressure like, and non-radiating in nature. She reports multiple episodes of hematochezia. She describes the stool as normal but streaked with blood. She denies any changes in diet. The patient reports she was seen in March for similar symptoms, and was diagnosed with colonic narrowing. Of note, patient reports seeing Dr. Das for colonoscopy which had a normal result. Patient's LMP was 09/08. The patient denies chest pain, shortness of breath, headache, and dizziness. Denies fevers, chills, nausea, vomiting, diarrhea, and constipation. Denies dysuria, frequency, urgency, and hematuria. Allergies: NKA Past surgical history: Patient denies surgery Social history: No reported cigarette, alcohol, or drug use. PCP: Dr. Das ([phone]) <Isaiah Fonseca - Last Filed: 09/27/17 19:51> <Darron Sarmiento - Last Filed: 09/27/17 20:34> - General Chief Complaint: Pain Stated Complaint: ABD PAIN Time Seen by Provider: 09/27/17 15:27 Past History <Isaiah Fonseca - Last Filed: 09/27/17 19:51> - Past Medical History Anemia: No Asthma: No Cancer: No Cardiac Disorders: No CVA: No COPD: No CHF: No DVT: No Dementia: No Diabetes: No Dialysis: No GI Disorders: Yes ("Intestine Infection") Disorders: No (OVARIAN CYSTS) HTN: No Hypercholesterolemia: No Kidney Stones: No Liver Disease: No Psychiatric Problems: No Seizures: No Thyroid Disease: No Lung CA: No - Surgical History Abdominal Surgery: No Appendectomy: No Cardiac Surgery: No Cholecystectomy: No Gastric Stapling: No GI Surgery: No Lung Surgery: No Neurologic Surgery: No - Immunization History Immunization Up to Date: Yes - Suicide/Smoking/Psychosocial Hx Smoking History: Never smoked Have you smoked in the past 12 months: No If you are a former smoker, when did you quit?: 2014 Information on smoking cessation initiated: No Hx Alcohol Use: No Drug/Substance Use Hx: No Substance Use Type: None <Darron Sarmiento - Last Filed: 09/27/17 20:34> - Past Medical History Allergies/Adverse Reactions: Allergies Allergy/AdvReac Type Severity Reaction Status Date / Time No Known Allergies Allergy Verified 09/27/17 14:20 Home Medications: Ambulatory Orders NK [No Known Home Medication] 04/18/17 Review of Systems - Review of Systems Able to Perform ROS?: Yes Comments:: CONSTITUTIONAL: No fever, no chills, no fatigue EYES: No visual changes ENT: No ear pain, no sore throat CARDIOVASCULAR: No chest pain, no palpitations RESPIRATORY: No cough, no SOB GI: (+)Bilateral lower abdominal pain. (+)Hematochezia. No nausea, no vomiting, no constipation, no diarrhea GENITOURINARY: No dysuria, no frequency, no hematuria MUSKULOSKELETAL: No backpain, no joint pain, no myalgias SKIN: No rash NEURO: No headache <Isaiah Fonseca - Last Filed: 09/27/17 19:51> *Physical Exam - Vital Signs Last Vital Signs Temp Pulse Resp BP Pulse Ox 98.4 F 81 20 134/52 100 09/27/17 14:10 09/27/17 14:10 09/27/17 14:10 09/27/17 14:10 09/27/17 14:10 - Physical Exam Comments: CONSTITUTIONAL: Well-appearing; well-nourished; in no apparent distress HEAD: Normocephalic; atraumatic EYES: PERRL; EOM intact ENMT: External appears normal; normal oropharynx NECK: Supple; non-tender; no cervical lymphadenopathy CARD: Normal S1, S2; no murmurs, rubs, or gallops RESP: Normal chest excursion with respiration; breath sounds clear and equal bilaterally; no wheezes, rhonchi, or rales ABD: (+)Mild bilateral lower quadrant tenderness, right greater than left. Soft , non-distended. EXT: Normal ROM in all four extremities; non-tender to palpation; distal pulses intact SKIN: Warm, dry, no rash NEURO: No focal neurological deficiencies. <Isaiah Fonseca - Last Filed: 09/27/17 19:51> - Vital Signs Last Vital Signs Temp Pulse Resp BP Pulse Ox 98.4 F 81 20 134/52 100 09/27/17 14:10 09/27/17 14:10 09/27/17 14:10 09/27/17 14:10 09/27/17 14:10 <Darron Sarmiento - Last Filed: 09/27/17 20:34> ED Treatment Course - LABORATORY CBC & Chemistry Diagram: 09/27/17 17:00 09/27/17 17:00 - ADDITIONAL ORDERS Additional order review: Laboratory Results 09/27/17 09/27/17 17:00 14:50 Sodium 139 Potassium 4.2 Chloride 105 Carbon Dioxide 26 Anion Gap 8 BUN 11 Creatinine 0.8 Creat Clearance w eGFR > 60 Random Glucose 82 Calcium 9.3 Total Bilirubin 0.3 D AST 18 ALT 20 Alkaline Phosphatase 97 Total Protein 7.8 Albumin 4.1 Urine Color Yellow Urine Appearance Turbid Urine pH 8.0 Ur Specific [place] 1.019 Urine Protein Negative Urine Glucose (UA) Negative Urine Ketones Negative Urine Blood Negative Urine Nitrite Negative Urine Bilirubin Negative Urine Urobilinogen Negative Ur Leukocyte Esterase Negative Urine HCG, Qual Negative 09/27/17 17:00 RBC 4.52 MCV 88.3 MCHC 33.4 RDW 13.3 MPV 8.2 Neutrophils % 70.6 D Lymphocytes % 19.7 D Monocytes % 8.0 Eosinophils % 1.2 Basophils % 0.5 <Isaiah Fonseca - Last Filed: 09/27/17 19:51> - LABORATORY CBC & Chemistry Diagram: 09/27/17 17:00 09/27/17 17:00 - ADDITIONAL ORDERS Additional order review: Laboratory Results 09/27/17 14:50 Urine Color Yellow Urine Appearance Turbid Urine pH 8.0 Ur Specific [place] 1.019 Urine Protein Negative Urine Glucose (UA) Negative Urine Ketones Negative Urine Blood Negative Urine Nitrite Negative Urine Bilirubin Negative Urine Urobilinogen Negative Ur Leukocyte Esterase Negative Urine HCG, Qual Negative <Darron Sarmiento - Last Filed: 09/27/17 20:34> Medical Decision Making - Medical Decision Making 09/27/17 19:45 Patient is a well-appearing 22-year-old female who presents to the ER with atraumatic lower abdominal pain and blood streaked stools. In the ER, patient is afebrile, nontoxic appearing. Abdominal exam reveals mild tenderness to deep palpation to the bilateral lower quadrants (right greater than left); differential diagnoses includes IBD versus appendicitis versus colitis. I suspect the rectal bleeding and pain on defecation is related to the anal fissure. Will obtain CT with by mouth and IV contrast to further investigate abdominal pain. Will reassess. 09/27/17 20:32 Patient reassessed. Patient is resting comfortably, pain free, tolerates by mouth. CBC reveals minimal leukocytosis with normal differential. CMP and urinalysis within normal limit. CT that and pelvis reveals no evidence of acute intra-abdominal pathology, right adnexal cyst with possible free fluid in the pelvis is noted. I do not suspect torsion at this time. Ovarian cyst is suspected. Will discharge with outpatient follow-up. <Darron Sarmiento - Last Filed: 09/27/17 20:34> *DC/Admit/Observation/Transfer - Attestations Scribe Attestion: Documentation prepared by Isaiah Fonseca, acting as adjunct faculty for medical terminology for Darron Sarmiento MD. <Isaiah Fonseca - Last Filed: 09/27/17 19:51> - Attestations Physician Attestion: 09/27/17 19:45 The documentation was prepared by the scribe under my direct supervision. I have reviewed the documentation which correctly represents the findings, medical decision-making and critical action taken by me. <Darron Sarmiento - Last Filed: 09/27/17 20:34> Diagnosis at time of Disposition: Anal fissure Abdominal pain Qualifiers: Abdominal location: right lower quadrant Qualified Code(s): R10.31 - Right lower quadrant pain Ovarian cyst Qualifiers: Laterality: right Qualified Code(s): N83.201 - Unspecified ovarian cyst, right side - Discharge Dispostion Disposition: HOME Condition at time of disposition: Stable - Referrals Referrals: Dami Das MD [Primary Care Provider] - Mathew Brumfield MD [Staff Physician] - - Patient Instructions Printed Discharge Instructions: DI for Abdominal Pain-Adult, DI for Ovarian Cyst, DI for Anal Fissure Print Language: LAO - Post Discharge Activity
[2017-09-27 17:50] LABS: BASO % 0.5 % (0-2.0); EOS % 1.2 % (0-4.5); HEMATOCRIT 39.9 % (32.4-45.2); HEMOGLOBIN 13.3 GM/dL (10.7-15.3); LYMPH % 19.7 % (8-40); MCH 29.4 pg (25.7-33.7); MCHC 33.4 g/dl (32.0-36.0); MEAN CELL VOLUME 88.3 fl (80-96); MEAN PLT VOLUME 8.2 fl (7.5-11.1); NEUT % 70.6 % (42.8-82.8); PLATELET COUNT 278 K/MM3 (134-434); RBC 4.52 M/mm3 (3.60-5.2); RDW 13.3 % (11.6-15.6); WHITE BLOOD COUNT 11.6 K/mm3 (4.0-10.0)
[2017-09-27 19:06] LABS: ALBUMIN 4.1 g/dl (3.4-5.0); ALK PHOS 97 U/L (45-117); BILIRUBIN,TOTAL 0.3 mg/dL (0.2-1.0); BLOOD UREA NITROGEN 11 mg/dL (7-18); CALCIUM 9.3 mg/dL (8.5-10.1); CHLORIDE 105 mmol/L (98-107); CREATININE 0.8 mg/dL (0.55-1.02); GLUCOSE,RANDOM 82 mg/dL (74-106); POTASSIUM 4.2 mmol/L (3.5-5.1); SGOT/AST 18 U/L (15-37); SGPT/ALT 20 U/L (12-78); SODIUM 139 mmol/L (136-145); TOT PROT 7.8 g/dl (6.4-8.2)
[2017-09-27 19:26] LABS: ANION GAP 8 (8-16); CO2 26 mmol/L (21-32)
[2017-09-27 20:57] VITALS: BP 127/58; PULSE 76; TEMP 98.3
== END 2017-09-27 20:57 | disposition home or self-care (01) ==
LOC: JER 13:54
DX: K60.2 Anal fissure, unspecified (principal); N83.201 Unspecified ovarian cyst, right side
CPT/HCPCS: 36415; 74177-TC; 80053; 81003; 84703; 85025; 87086; 99284-25

== ENCOUNTER 2018-08-19 23:40 | Emergency (ER) | payer OTHER ==
--- NOTE | 2018-08-20 01:00 | PDOC ---
History of Present Illness - General Stated Complaint: CONSTIPATION Time Seen by Provider: 08/20/18 01:00 - History of Present Illness Initial Comments: 08/20/18 01:00 Ms. Gutierrez Reyes is a 23 yo female w/ pmh of PCOS and UC who presents for evaluation of inability to urinate for 24 hours. Patient reports she has been drinking fluids however has been unable to urinate - also experiencing vaginal pain. Patient reports she had a similar episode last week which resolved itself within 1 day and had fevers/chills following this. Denies any other symptoms at this time. The patient denies chest pain, shortness of breath, headache and dizziness. Denies fever, chills, nausea, vomit, diarrhea and constipation. Denies dysuria, frequency, urgency and hematuria. Past History - Past Medical History Allergies/Adverse Reactions: Allergies Allergy/AdvReac Type Severity Reaction Status Date / Time No Known Allergies Allergy Verified 08/20/18 01:12 Home Medications: Ambulatory Orders NK [No Known Home Medication] 04/18/17 Anemia: No Asthma: No Cancer: No Cardiac Disorders: No CVA: No COPD: No CHF: No DVT: No Dementia: No Diabetes: No Dialysis: No GI Disorders: Yes ("Intestine Infection") Disorders: No (OVARIAN CYSTS) HTN: No Hypercholesterolemia: No Kidney Stones: No Liver Disease: No Psychiatric Problems: No Seizures: No Thyroid Disease: No Lung CA: No - Surgical History Abdominal Surgery: No Appendectomy: No Cardiac Surgery: No Cholecystectomy: No Gastric Stapling: No GI Surgery: No Lung Surgery: No Neurologic Surgery: No - Immunization History Immunization Up to Date: Yes - Suicide/Smoking/Psychosocial Hx Smoking History: Never smoked Have you smoked in the past 12 months: No If you are a former smoker, when did you quit?: 2014 Hx Alcohol Use: No Drug/Substance Use Hx: No Substance Use Type: None Review of Systems - Review of Systems Comments:: 08/20/18 01:26 GENERAL/CONSTITUTIONAL: +Prior fever/chills as described (resolved). No weakness. HEAD, EYES, EARS, NOSE AND THROAT: No change in vision. No ear pain or discharge. No sore throat. CARDIOVASCULAR: No chest pain or shortness of breath RESPIRATORY: No cough, wheezing, or hemoptysis. GASTROINTESTINAL: No nausea, vomiting, diarrhea or constipation. GENITOURINARY: +Urinary symptoms as described. MUSCULOSKELETAL: No joint or muscle swelling or pain. No neck or back pain. SKIN: No rash NEUROLOGIC: No headache, vertigo, loss of consciousness, or change in strength/ sensation. ENDOCRINE: No increased thirst. No abnormal weight change HEMATOLOGIC/LYMPHATIC: No anemia, easy bleeding, or history of blood clots. ALLERGIC/IMMUNOLOGIC: No hives or skin allergy. *Physical Exam - Physical Exam Comments: 08/20/18 01:26 GENERAL: Awake, alert, and fully oriented, in no acute distress HEAD: No signs of trauma, normocephalic, atraumatic EYES: PERRLA, EOMI, sclera anicteric, conjunctiva clear ENT: Auricles normal inspection, hearing grossly normal, nares patent, oropharynx clear without exudates. Moist mucosa NECK: Normal ROM, supple, no lymphadenopathy, JVD, or masses LUNGS: No distress, speaks full sentences, clear to auscultation bilaterally HEART: Regular rate and rhythm, normal S1 and S2, no murmurs, rubs or gallops, peripheral pulses normal and equal bilaterally. ABDOMEN: Soft, nontender, normoactive bowel sounds. No guarding, no rebound. No masses EXTREMITIES: Normal inspection, Normal range of motion, no edema. No clubbing or cyanosis. NEUROLOGICAL: Cranial nerves II through XII grossly intact. Normal speech, normal gait, no focal sensorimotor deficits SKIN: Warm, Dry, normal turgor, no rashes or lesions noted. VAGINAL: No CMT, no adnexal tenderness, no blood, os closed. Physiologic discharge noted. ED Treatment Course - LABORATORY CBC & Chemistry Diagram: 08/20/18 02:21 08/20/18 02:21 Medical Decision Making - Medical Decision Making 08/20/18 01:34 Ms. Gutierrez Reyes is a 23 yo female w/ pmh as described who presents for evaluation of symptoms concerning for obstruction vs. UTI vs. dehydration. Patient post-void residual bedside US yielded only 30cc bladder volume. Patient urine appears cloudy. Patient reporting feeling of incomplete urination only at this time. 08/20/18 03:29 Patient labs grossly wnl. Patient able to urinate w/out difficulty. Urine negative for UTI. Exam negative. No concern for acute process at this time. Patient safe for discharge home and outpatient follow-up. Laboratory Results - last 24 hr 08/20/18 08/20/18 08/20/18 01:25 01:25 01:33 WBC 6.7 RBC 4.37 Hgb 12.9 Hct 38.4 MCV 88.0 MCH 29.6 MCHC 33.6 RDW 13.5 Plt Count 240 MPV 8.5 Absolute Neuts (auto) 2.5 Neutrophils % 37.2 L D Lymphocytes % 48.5 H D Monocytes % 10.9 H Eosinophils % 2.4 D Basophils % 1.0 Nucleated RBC % 0 Sodium 136 Potassium 3.9 Chloride 103 Carbon Dioxide 26 Anion Gap 6 L BUN 8 Creatinine 0.5 L Creat Clearance w eGFR 154.28 Random Glucose 93 Calcium 9.1 Total Bilirubin 0.3 AST 17 ALT 17 Alkaline Phosphatase 93 Total Protein 8.0 Albumin 4.0 Urine Color Yellow Urine Appearance Turbid Urine pH 7.5 Ur Specific [place] 1.015 Urine Protein Negative Urine Glucose (UA) Negative Urine Ketones Negative Urine Blood Negative Urine Nitrite Negative Urine Bilirubin Negative Urine Urobilinogen 0.2 Ur Leukocyte Esterase Negative 08/20/18 08/20/18 02:21 02:21 WBC 6.0 RBC 4.36 Hgb 12.9 Hct 38.3 MCV 87.7 MCH 29.5 MCHC 33.7 RDW 13.2 Plt Count 242 MPV 8.5 Absolute Neuts (auto) 2.2 Neutrophils % 36.6 L Lymphocytes % 49.2 H Monocytes % 10.3 H Eosinophils % 3.0 Basophils % 0.9 Nucleated RBC % 0 Sodium 137 Potassium 3.8 Chloride 105 Carbon Dioxide 26 Anion Gap 6 L BUN 9 Creatinine 0.5 L Creat Clearance w eGFR 154.28 Random Glucose 91 Calcium 8.9 Total Bilirubin 0.4 AST 16 ALT 17 Alkaline Phosphatase 88 Total Protein 7.4 Albumin 3.8 Urine Color Urine Appearance Urine pH Ur Specific [place] Urine Protein Urine Glucose (UA) Urine Ketones Urine Blood Urine Nitrite Urine Bilirubin Urine Urobilinogen Ur Leukocyte Esterase *DC/Admit/Observation/Transfer Diagnosis at time of Disposition: Urinary problem in female - Discharge Dispostion Disposition: HOME Condition at time of disposition: Fair - Referrals - Patient Instructions Printed Discharge Instructions: DI for Urinary Retention in Women Additional Instructions: You were evaluated today in the ER for your symptoms. You were able to urinate in ER and your exam was negative. We do not believe any emergent process is occuring at this time. Please follow-up with primary care provider in 1-2 days for further evaluation. Return to ER if any fever, chills, or further difficulty urinating. Usted fue evaluado hoy en la kim de emergencias por leonila sntomas. Usted pudo orinar en la kim de emergencias y marc examen fue negativo. No creemos que est ocurriendo ningn proceso emergente en maame momento. Por favor, leeroy un seguimiento con el proveedor de atencin primaria en 1-2 rollins para maile evaluacin adicional. Regrese a la kim de emergencias si tiene fiebre, escalofros o dificultad adicional Print Language: TAJIK - Post Discharge Activity
[2018-08-20 01:13] VITALS: BP 100/70; PULSE 63; TEMP 98.7; BMI 26.8
[2018-08-20 01:34] LABS: EOS % 2.4 % (0-4.5); HEMATOCRIT 38.4 % (32.4-45.2); HEMOGLOBIN 12.9 GM/dL (10.7-15.3); LYMPH % 48.5 % (8-40); MCH 29.6 pg (25.7-33.7); MCHC 33.6 g/dl (32.0-36.0); MEAN PLT VOLUME 8.5 fl (7.5-11.1); MONO % 10.9 % (3.8-10.2); NEUT % 37.2 % (42.8-82.8); PLATELET COUNT 240 K/MM3 (134-434); RBC 4.37 M/mm3 (3.60-5.2); RDW 13.5 % (11.6-15.6); WHITE BLOOD COUNT 6.7 K/mm3 (4.0-10.0)
[2018-08-20 01:48] LABS: PH,URINE 7.5 (5.0-8.0); URINE APPEARANCE TURBID; URINE BILIRUBIN NEGATIVE (NEGATIVE); URINE COLOR YELLOW; URINE GLUCOSE (UA) NEGATIVE (NEGATIVE); URINE KETONE NEGATIVE (NEGATIVE); URINE LEUK ESTERASE NEGATIVE (NEGATIVE); URINE NITRITE NEGATIVE (NEGATIVE); URINE PROTEIN NEGATIVE (NEGATIVE); URINE UROBILINOGEN 0.2 mg/dL (0.2-1.0)
[2018-08-20 01:59] LABS: ALK PHOS 93 U/L (45-117); ANION GAP 6 MMOL/L (8-16); BILIRUBIN,TOTAL 0.3 mg/dL (0.2-1); BLOOD UREA NITROGEN 8 mg/dL (7-18); CALCIUM 9.1 mg/dL (8.5-10.1); CHLORIDE 103 mmol/L (98-107); CO2 26 mmol/L (21-32); CREATININE 0.5 mg/dL (0.55-1.3); GLUCOSE,RANDOM 93 mg/dL (74-106); POTASSIUM 3.9 mmol/L (3.5-5.1); SGOT/AST 17 U/L (15-37); SGPT/ALT 17 U/L (13-61); SODIUM 136 mmol/L (136-145)
[2018-08-20 02:29] LABS: BASO % 0.9 % (0-2.0); HEMATOCRIT 38.3 % (32.4-45.2); HEMOGLOBIN 12.9 GM/dL (10.7-15.3); LYMPH % 49.2 % (8-40); MCH 29.5 pg (25.7-33.7); MCHC 33.7 g/dl (32.0-36.0); MEAN CELL VOLUME 87.7 fl (80-96); MEAN PLT VOLUME 8.5 fl (7.5-11.1); MONO % 10.3 % (3.8-10.2); NEUT % 36.6 % (42.8-82.8); PLATELET COUNT 242 K/MM3 (134-434); RBC 4.36 M/mm3 (3.60-5.2); RDW 13.2 % (11.6-15.6)
[2018-08-20 02:56] LABS: ALBUMIN 3.8 g/dl (3.4-5.0); ALK PHOS 88 U/L (45-117); ANION GAP 6 MMOL/L (8-16); BILIRUBIN,TOTAL 0.4 mg/dL (0.2-1); BLOOD UREA NITROGEN 9 mg/dL (7-18); CALCIUM 8.9 mg/dL (8.5-10.1); CHLORIDE 105 mmol/L (98-107); CO2 26 mmol/L (21-32); CREATININE 0.5 mg/dL (0.55-1.3); GLUCOSE,RANDOM 91 mg/dL (74-106); POTASSIUM 3.8 mmol/L (3.5-5.1); SGOT/AST 16 U/L (15-37); SGPT/ALT 17 U/L (13-61); SODIUM 137 mmol/L (136-145); TOT PROT 7.4 g/dl (6.4-8.2)
--- NOTE | 2018-08-20 05:05 | PDOC ---
Attending Attestation - Resident Resident Name: Kevin Nicole - ED Attending Attestation I have performed the following: I have examined & evaluated the patient, The case was reviewed & discussed with the resident, I agree w/resident's findings & plan, Exceptions are as noted - HPI HPI: 08/20/18 05:00 The patient is a 23 year old female with no significant PMH who presents to the emergency department with "urinary retention" since last night. Patient has been drinking fluids at home. Patient is also complaining of associated vaginal pain, fevers and chills. Patient has not taken any medications at home. She reports similar symptoms last week, which resolved on its own. When questioned further, she states she is able to urinate, but feels like she constantly needs to pee but doesn't at times. Patient states she is not sexually active. Denies any history of kidney stones. Denies dysuria, frequency, urgency and hematuria. Denies vaginal DC or bleeding. The patient denies nausea, vomit, diarrhea, constipation. Denies CP, SOB. Denies back pain, focal weakness/numbness. Allergies: NKA Past surgical history: None reported. Social history: No reported alcohol, drug or cigarette use. - Physicial Exam PE: 08/20/18 05:02 GENERAL: Awake, alert, and fully oriented, in no acute distress EYES: PERRLA, EOMI, sclera anicteric, conjunctiva clear ENT: Oropharynx clear without exudates. Moist mucosa NECK: Normal ROM, supple, no lymphadenopathy, JVD, or masses LUNGS: Breath sounds equal, clear to auscultation bilaterally. No wheezes, and no crackles HEART: Regular rate and rhythm, normal S1 and S2, no murmurs, rubs or gallops ABDOMEN: Soft, nontender, normoactive bowel sounds. No guarding, no rebound. No masses EXTREMITIES: Normal range of motion, no edema. No clubbing or cyanosis. No cords, erythema, or tenderness NEUROLOGICAL: Normal speech, cranial nerves intact, negative pronator drift, 5/ 5 strength in all 4 extremities, normal sensation to light touch in all 4 extremities, normal cerebellar exam, normal gait, normal reflexes and tone SKIN: Warm, Dry, normal turgor, no rashes or lesions noted. PVR ~20cc - Medical Decision Making 04/10/19 05:03 23yo F presents to the ED with "urinary retention" but history more consistent with urgency. PVR is minimal. Vitals wnl. Pt is very well appearing. Labs wnl. UPT, UA negative. Pt very comfortable after 5 hour observation in the ED, denies any complaints. Pt clinically stable for DC with close PMD f/u I discussed the physical exam findings, ancillary test results and final diagnoses with the patient. I answered all of the patient's questions. The patient was satisfied with the care received and felt comfortable with the discharge plan and treatment plan. The patient will call their primary care physician within 24 hours to arrange follow-up and will return to the Emergency Department with any new, persistent or worsening symptoms.
== END 2018-08-20 05:16 | disposition home or self-care (01) ==
LOC: JER 23:40
PROC: BT40ZZZ Ultrasonography of Bladder (ICD-10-PCS; principal; 2018-08-19)
DX: R33.8 Other retention of urine (principal)
CPT/HCPCS: 36415; 76857; 80053; 81003; 84703; 85025; 87086; 99282-25

== ENCOUNTER 2020-09-24 16:01 | Emergency (ER) | payer OTHER ==
[2020-09-24 16:21] VITALS: BP 115/70; PULSE 101; TEMP 98; BMI 63.7
[2020-09-24] MEDS ORDERED: ONDANSETRON 4 MG/2 ML VIAL IVPUSH ONE (16:52)
[2020-09-24] MEDS ORDERED: SODIUM CHLORIDE 0.9% 500 ML INFUS.BAG IV ONE (17:04)
[2020-09-24] MEDS ORDERED: ONDANSETRON 4 MG/2 ML VIAL ONE (17:11)
[2020-09-24 17:32] LABS: PH,URINE 8.5 (5.0-8.0); URINE APPEARANCE CLEAR; URINE BILIRUBIN NEGATIVE (NEGATIVE); URINE COLOR YELLOW; URINE GLUCOSE (UA) NEGATIVE (NEGATIVE); URINE KETONE NEGATIVE (NEGATIVE); URINE LEUK ESTERASE NEGATIVE (NEGATIVE); URINE NITRITE NEGATIVE (NEGATIVE); URINE PROTEIN NEGATIVE (NEGATIVE)
[2020-09-24 17:34] LABS: HCG,QUALITATIVE URINE Negative
[2020-09-24 18:00] LABS: BASO % 0.3 % (0-2.0); EOS % 2.8 % (0-4.5); HEMATOCRIT 41.9 % (32.4-45.2); HEMOGLOBIN 13.9 GM/dL (10.7-15.3); LYMPH % 14.8 % (8-40); MCH 29.5 pg (25.7-33.7); MCHC 33.2 g/dl (32.0-36.0); MEAN CELL VOLUME 88.8 fl (80-96); MEAN PLT VOLUME 8.9 fl (7.5-11.1); MONO % 7.7 % (3.8-10.2); NEUT % 74.4 % (42.8-82.8); PLATELET COUNT 289 K/MM3 (134-434); RBC 4.71 M/mm3 (3.60-5.2); RDW 13.3 % (11.6-15.6); WHITE BLOOD COUNT 7.4 K/mm3 (4.0-10.0)
[2020-09-24 18:08] LABS: INR 1.13 (0.83-1.09); PROTHROMBIN TIME (PATIENT) 13.6 SEC (9.7-13.0)
[2020-09-24 18:11] LABS: ACTIVATED PTT 31.7 SECONDS (25.2-36.5)
[2020-09-24 18:25] LABS: ALBUMIN 4.2 g/dl (3.4-5.0); CALCIUM 8.9 mg/dL (8.5-10.1)
[2020-09-24 18:26] LABS: BLOOD UREA NITROGEN 13.1 mg/dL (7-18)
[2020-09-24 18:29] LABS: CREATININE 0.6 mg/dL (0.55-1.3)
[2020-09-24 18:30] LABS: BILIRUBIN,TOTAL 0.4 mg/dL (0.2-1); TOT PROT 7.8 g/dl (6.4-8.2)
[2020-09-24] MEDS ORDERED: FAMOTIDINE 20 MG/50 ML IVPB 20 MG/50 ML MG IVPB ONE ×2 (19:35→19:58)
== END 2020-09-24 21:05 | disposition home or self-care (01) ==
LOC: JER 16:01
PROC: 3E033GC Introduction of Other Therapeutic Substance into Peripheral Vein, Percutaneous Approach (ICD-10-PCS; principal; 2020-09-24)
PROC: 3E033GC Introduction of Other Therapeutic Substance into Peripheral Vein, Percutaneous Approach (ICD-10-PCS; 2020-09-24)
DX: R10.13 Epigastric pain (principal)
CPT/HCPCS: 36415; 74177-TC; 80053; 81003; 84703; 85025; 85610; 85730; 87086; 99285-25; Q9967

== ENCOUNTER 2020-09-26 14:48 | Emergency (ER) | payer OTHER ==
[2020-09-26 14:54] VITALS: TEMP 98; BMI 28.9
[2020-09-26] MEDS ORDERED: SODIUM CHLORIDE 1,000 ML IV STA (15:29)
[2020-09-26] MEDS ORDERED: FAMOTIDINE 20 MG/50 ML IVPB 20 MG/50 ML MG IVPB ONE ×2 (15:29→16:04)
[2020-09-26] MEDS ORDERED: ONDANSETRON 4 MG/2 ML VIAL IVPUSH ONE (15:29)
[2020-09-26] MEDS ORDERED: ONDANSETRON 4 MG/2 ML VIAL ONE (16:04)
[2020-09-26 16:34] LABS: PH,URINE 7.5 (5.0-8.0); URINE APPEARANCE CLEAR; URINE BILIRUBIN NEGATIVE (NEGATIVE); URINE COLOR YELLOW; URINE GLUCOSE (UA) NEGATIVE (NEGATIVE); URINE KETONE NEGATIVE (NEGATIVE); URINE LEUK ESTERASE NEGATIVE (NEGATIVE); URINE NITRITE NEGATIVE (NEGATIVE); URINE PROTEIN NEGATIVE (NEGATIVE)
[2020-09-26 17:03] LABS: BASO % 0.5 % (0-2.0); EOS % 4.6 % (0-4.5); HEMATOCRIT 42.4 % (32.4-45.2); HEMOGLOBIN 14.2 GM/dL (10.7-15.3); LYMPH % 38.1 % (8-40); MCH 29.5 pg (25.7-33.7); MCHC 33.5 g/dl (32.0-36.0); MEAN CELL VOLUME 88.1 fl (80-96); MEAN PLT VOLUME 9.3 fl (7.5-11.1); MONO % 15.2 % (3.8-10.2); NEUT % 41.6 % (42.8-82.8); PLATELET COUNT 301 K/MM3 (134-434); RBC 4.82 M/mm3 (3.60-5.2); RDW 13.2 % (11.6-15.6); WHITE BLOOD COUNT 5.1 K/mm3 (4.0-10.0)
[2020-09-26 17:16] LABS: CALCIUM 9.2 mg/dL (8.5-10.1)
[2020-09-26 17:17] LABS: ALBUMIN 4.2 g/dl (3.4-5.0)
[2020-09-26 17:19] LABS: BLOOD UREA NITROGEN 6.5 mg/dL (7-18)
[2020-09-26 17:21] LABS: CREATININE 0.6 mg/dL (0.55-1.3)
[2020-09-26 17:22] LABS: BILIRUBIN,TOTAL 0.3 mg/dL (0.2-1)
[2020-09-26 17:23] LABS: TOT PROT 8.4 g/dl (6.4-8.2)
[2020-09-26 18:30] VITALS: BP 113/78; PULSE 86
== END 2020-09-26 18:30 | disposition home or self-care (01) ==
LOC: JER 14:48
PROC: 3E033GC Introduction of Other Therapeutic Substance into Peripheral Vein, Percutaneous Approach (ICD-10-PCS; principal; 2020-09-26)
PROC: 3E033GC Introduction of Other Therapeutic Substance into Peripheral Vein, Percutaneous Approach (ICD-10-PCS; 2020-09-26)
PROC: 3E0337Z Introduction of Electrolytic and Water Balance Substance into Peripheral Vein, Percutaneous Approach (ICD-10-PCS; 2020-09-26)
DX: R10.13 Epigastric pain (principal)
CPT/HCPCS: 36415; 80053; 81003; 83690; 85025; 87086; 99284-25

== ENCOUNTER 2021-03-11 13:13 | Emergency (ER) | payer OTHER ==
[2021-03-11 13:33] VITALS: BMI 29.4
[2021-03-11] MEDS ORDERED: ACETAMINOPHEN 1000 MG/100 ML VIAL IVPB ONE (14:19)
[2021-03-11] MEDS: ACETAMINOPHEN 500 MG TABLET (FP) PO ONE ×2 (14:35→15:22)
[2021-03-11] MEDS ORDERED: ACETAMINOPHEN 325 MG TABLET (FP) ONE ×2 (14:58→22:31)
[2021-03-11 15:22] LABS: BASO % 1.2 % (0-2.0); EOS % 2.3 % (0-4.5); HEMATOCRIT 37.4 % (32.4-45.2); HEMOGLOBIN 12.7 GM/dL (10.7-15.3); LYMPH % 7.7 % (8-40); MCH 28.8 pg (25.7-33.7); MCHC 33.9 g/dl (32.0-36.0); MEAN PLT VOLUME 8.3 fl (7.5-11.1); NEUT % 73.8 % (42.8-82.8); PLATELET COUNT 252 10^3/uL (134-434); RBC 4.41 M/mm3 (3.60-5.2); RDW 13.5 % (11.6-15.6); WHITE BLOOD COUNT 5.3 K/mm3 (4.0-10.0)
[2021-03-11 15:44] LABS: PH,URINE 6.5 (5.0-8.0); URINE APPEARANCE CLEAR; URINE BILIRUBIN NEGATIVE (NEGATIVE); URINE COLOR YELLOW; URINE GLUCOSE (UA) NEGATIVE (NEGATIVE); URINE KETONE NEGATIVE (NEGATIVE); URINE LEUK ESTERASE NEGATIVE (NEGATIVE); URINE NITRITE NEGATIVE (NEGATIVE); URINE PROTEIN NEGATIVE (NEGATIVE)
[2021-03-11 16:22] LABS: CHLORIDE 108 mmol/L (98-107); SODIUM 140 mmol/L (136-145)
[2021-03-11 16:24] LABS: CALCIUM 9.1 mg/dL (8.5-10.1)
[2021-03-11 16:25] LABS: ALBUMIN 3.6 g/dl (3.4-5.0); ANION GAP 9 MMOL/L (8-16); BLOOD UREA NITROGEN 9.6 mg/dL (7-18); CO2 22 mmol/L (21-32); GLUCOSE,RANDOM 90 mg/dL (74-106)
[2021-03-11 16:28] LABS: CREATININE 0.7 mg/dL (0.55-1.3); SGOT/AST 16 U/L (15-37); SGPT/ALT 17 U/L (13-61)
[2021-03-11 16:29] LABS: BILIRUBIN,TOTAL 0.2 mg/dL (0.2-1)
[2021-03-11 16:30] LABS: TOT PROT 7.7 g/dl (6.4-8.2)
[2021-03-11 16:31] LABS: ALK PHOS 94 U/L (45-117)
[2021-03-11] MEDS ORDERED: SODIUM CHLORIDE 0.9% 500 ML INFUS.BAG IV ONE (18:24)
[2021-03-11] MEDS ORDERED: LORazepam 2 MG/ML SDV VIAL IVPUSH ONE (19:09)
[2021-03-11] MEDS ORDERED: CASIRIVIMAB/IMDEVIMAB 10 ML in SODIUM CHLORIDE 100 ML IVPB ONE (20:07)
[2021-03-11 20:53] VITALS: TEMP 98.4
[2021-03-11 21:29] VITALS: PULSE 90
[2021-03-11] MEDS ORDERED: ACETAMINOPHEN 500 MG TABLET (FP) PO ONE (22:24)
[2021-03-11 22:41] VITALS: BP 103/70
== END 2021-03-11 22:50 | disposition home or self-care (01) ==
LOC: JER 13:13
PROC: 3E033GC Introduction of Other Therapeutic Substance into Peripheral Vein, Percutaneous Approach (ICD-10-PCS; principal; 2021-03-11)
DX: U07.1 COVID-19 (principal)
CPT/HCPCS: 36415; 71046-TC-FY; 71275-TC; 80053; 81003; 83605; 84484; 84703; 85025; 85379; 87086; 87804; 93005; 93010; 93308; 99285-25; C9803; Q0240; Q9967; U0003; U0005

== ENCOUNTER 2021-05-07 11:21 | Emergency (ER) | payer OTHER ==
[2021-05-07 11:40] VITALS: BP 101/66; PULSE 68; TEMP 97.8; BMI 28.3
[2021-05-07] MEDS ORDERED: FLUCONAZOLE 150 MG TABLET PO ONE ×2 (13:01→13:15)
[2021-05-07 13:23] LABS: PH,URINE 6.5 (5.0-8.0); URINE APPEARANCE CLEAR; URINE BILIRUBIN NEGATIVE (NEGATIVE); URINE COLOR YELLOW; URINE GLUCOSE (UA) NEGATIVE (NEGATIVE); URINE KETONE NEGATIVE (NEGATIVE); URINE LEUK ESTERASE NEGATIVE (NEGATIVE); URINE NITRITE NEGATIVE (NEGATIVE); URINE PROTEIN NEGATIVE (NEGATIVE); URINE UROBILINOGEN 0.2 mg/dL (0.2-1.0)
[2021-05-07 13:25] LABS: HCG,QUALITATIVE URINE Negative
== END 2021-05-07 13:18 | disposition home or self-care (01) ==
LOC: JER 11:21
DX: B37.9 Candidiasis, unspecified (principal); B34.9 Viral infection, unspecified
CPT/HCPCS: 36415; 81003; 84703; 87070; 87086; 87205; 87491; 87591; 87661; 87804; 87807; 99283-25; C9803; U0003; U0005

== ENCOUNTER 2021-12-11 04:14 | Emergency (ER) | payer OTHER ==
[2021-12-11 04:26] VITALS: BP 124/76; PULSE 100; RESP 18; TEMP 98; BMI 34.0
[2021-12-11] MEDS ORDERED: ACETAMINOPHEN 325 MG TABLET (FP) PO ONE (05:02)
[2021-12-11] MEDS ORDERED: ACETAMINOPHEN 325 MG TABLET (FP) ONE (05:04)
== END 2021-12-11 05:42 | disposition home or self-care (01) ==
LOC: JER 04:14
DX: J06.9 Acute upper respiratory infection, unspecified (principal)
CPT/HCPCS: 0241U-QW; 99283-25

== ENCOUNTER 2022-10-22 00:09 | Emergency (ER) | payer OTHER ==
[2022-10-22 00:26] VITALS: BP 104/72; PULSE 87; RESP 18; TEMP 98.1; BMI 31.4
[2022-10-22] MEDS ORDERED: LACTATED RINGERS SOLUTION 1000 ML INFUS.BAG IV ONE (01:16)
[2022-10-22] MEDS ORDERED: FAMOTIDINE 20 MG/50 ML IVPB 20 MG/50 ML MG IVPB ONE ×2 (01:16→01:49)
[2022-10-22] MEDS ORDERED: ONDANSETRON 4 MG/2 ML VIAL IVPUSH ONE (01:16)
[2022-10-22] MEDS ORDERED: MAG HYDROX/AL HYDROX/SIMETH -MYLANTA- ORAL SUSPENSION PO ONE (01:16)
[2022-10-22] MEDS ORDERED: PANTOPRAZOLE SODIUM 40 MG VIAL IVPUSH ONE (01:19)
[2022-10-22] MEDS ORDERED: SUCRALFATE 1 GM/10 ML UNIT DOSE CUPS PO ONE (01:20)
[2022-10-22] MEDS ORDERED: ONDANSETRON 4 MG/2 ML VIAL ONE (01:48)
[2022-10-22] MEDS ORDERED: SUCRALFATE 1 GM TABLET (FP) ONE (01:48)
[2022-10-22] MEDS ORDERED: PANTOPRAZOLE SODIUM 40 MG VIAL ONE (01:49)
[2022-10-22] MEDS ORDERED: FAMOTIDINE 10 MG/ML VIAL IVPB ONE (01:52)
[2022-10-22 02:00] LABS: BASO % 0.4 % (0-2.0); EOS % 4.8 % (0-4.5); HEMATOCRIT 39.5 % (32.4-45.2); LYMPH % 26.4 % (8-40); MCH 27.8 pg (25.7-33.7); MEAN CELL VOLUME 84.4 fl (80-96); MONO % 11.2 % (3.8-10.2); NEUT % 57.2 % (42.8-82.8); PLATELET COUNT 295 10^3/uL (134-434); RBC 4.68 M/mm3 (3.60-5.2); RDW 14.4 % (11.6-15.6)
[2022-10-22 02:17] LABS: CHLORIDE 108 mmol/L (98-107); POTASSIUM 3.9 mmol/L (3.5-5.1); SODIUM 141 mmol/L (136-145)
[2022-10-22 02:18] LABS: ALBUMIN 3.8 g/dl (3.4-5.0); ANION GAP 10 MMOL/L (8-16); BLOOD UREA NITROGEN 7.6 mg/dL (7-18); CALCIUM 8.7 mg/dL (8.5-10.1); CO2 23 mmol/L (21-32); GLUCOSE,RANDOM 90 mg/dL (74-106)
[2022-10-22 02:21] LABS: SGPT/ALT 22 U/L (13-61)
[2022-10-22 02:22] LABS: CREATININE 0.6 mg/dL (0.55-1.3); SGOT/AST 23 U/L (15-37)
[2022-10-22 02:23] LABS: BILIRUBIN,TOTAL 0.3 mg/dL (0.2-1); TOT PROT 7.6 g/dl (6.4-8.2)
[2022-10-22 02:25] LABS: ALK PHOS 100 U/L (45-117)
[2022-10-22 15:50] LABS: AMYLASE 62 U/L (25-115); LIPASE 129 U/L (73-393)
== END 2022-10-22 03:56 | disposition home or self-care (01) ==
LOC: JER 00:09
PROC: 3E033GC Introduction of Other Therapeutic Substance into Peripheral Vein, Percutaneous Approach (ICD-10-PCS; principal; 2022-10-22)
PROC: 3E033GC Introduction of Other Therapeutic Substance into Peripheral Vein, Percutaneous Approach (ICD-10-PCS; 2022-10-22)
PROC: 3E033GC Introduction of Other Therapeutic Substance into Peripheral Vein, Percutaneous Approach (ICD-10-PCS; 2022-10-22)
DX: R10.9 Unspecified abdominal pain (principal); R11.2 Nausea with vomiting, unspecified; K29.70 Gastritis, unspecified, without bleeding; Z20.822 Contact with and (suspected) exposure to COVID-19
CPT/HCPCS: 0241U-QW; 36415; 80053; 82150; 83690; 84702; 84703; 85025; 99284-25